=== PATIENT | female | born 2000 | race Asian ===

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

== ENCOUNTER 2020-06-28 21:10 | Outpatient (REF) | payer MEDICAID, SELFPAY ==
[2020-06-30 14:24] LABS: Chlamydia Result Negative (Negative); GC Result Negative (Negative)
== END 2020-06-28 21:11 | disposition home or self-care (01) ==
LOC: LBN 21:10
PROVIDERS: PCP Pediatrics; Visit Provider Nurse Practitioner Family
DX: N89.8 Other specified noninflammatory disorders of vagina (principal); Z11.3 Encounter for screening for infections with a predominantly sexual mode of transmission; J02.8 Acute pharyngitis due to other specified organisms
CPT/HCPCS: 87077; 87491; 87591; 87070; 87480; 87510; 87660

== ENCOUNTER 2022-08-04 01:23 | Outpatient (CLI) | payer MEDICAID, SELFPAY ==
[2022-08-04 10:26] LABS: Calculated LDL 87 mg/dL (<100); Cholesterol 165 mg/dL (<200); HDL Cholesterol 66 mg/dL (40-60); Triglyceride 61 mg/dL (<150)
[2022-08-07 10:23] LABS: Hepatitis C Ab w Rflx HCV PCR Negative (Negative)
[2022-08-07 10:38] LABS: HIV-1/2 Ag & Ab Screen Negative (Negative)
== END 2022-08-04 01:24 | disposition home or self-care (01) ==
LOC: LBO 01:23
PROVIDERS: PCP Nurse Practitioner Family; Visit Provider Nurse Practitioner Family
DX: Z13.220 Encounter for screening for lipoid disorders (principal); Z11.4 Encounter for screening for human immunodeficiency virus [HIV]; Z11.59 Encounter for screening for other viral diseases
CPT/HCPCS: 36415; 80061; 86803; 87389

== ENCOUNTER 2022-08-22 11:27 | Outpatient (REF) | payer MEDICAID, SELFPAY ==
--- NOTE | 2022-08-22 10:48 | PAPFT_PTH ---
PATIENT: Selina Montesinos LOC: [facility] U#:[id number] AGE/SX: 22/F ROOM: RE08/22/[address]: Jacquelin Santacruz NP : [id number] BED: DIS: 08/22/2022 SPEC #: [id number] RECD: 08/22/22 13:13 STATUS: ADONAY REYadi #: [id number] ANNABELLA: 08/22/22 10:[address]: Jacquelin Santacruz NP DEPT: [facility] Cytology RECD BY: Danica Francis ENTERED: 08/22/22 13:13 SP TYPE: PAPFT OTHR DR: Codie Lott, [place] Tissues: 1 - CX/ENDOCX FOR PAP SMEARS Procedures: PAP THIN PREP/[facility] Screening Comments: [id number]
== END 2022-08-22 11:28 | disposition home or self-care (01) ==
LOC: LBN 11:27
PROVIDERS: PCP Nurse Practitioner Family; Visit Provider Nurse Practitioner Women's Health
DX: Z12.4 Encounter for screening for malignant neoplasm of cervix (principal)
CPT/HCPCS: 88142